=== PATIENT | male | born 1965 | race Caucasian/White ===

== ENCOUNTER 2020-10-16 13:45 | Inpatient (IN) | payer OTHER ==
[2020-10-16 15:19] LABS: BASO % 0.7 % (0-2.0); EOS % 0.3 % (0-4.5); HEMATOCRIT 47.8 % (35.4-49); HEMOGLOBIN 15.7 GM/dL (11.7-16.9); LYMPH % 10.3 % (8-40); MCH 29.5 pg (25.7-33.7); MCHC 32.9 g/dl (32.0-35.9); MEAN CELL VOLUME 89.7 fl (80-96); MEAN PLT VOLUME 8.8 fl (7.5-11.1); MONO % 8.9 % (3.8-10.2); NEUT % 79.8 % (42.8-82.8); PLATELET COUNT 272 10^3/uL (134-434); RBC 5.33 M/mm3 (4.00-5.60); RDW 14.2 % (11.9-15.9); WHITE BLOOD COUNT 11.5 K/mm3 (4.0-10.0)
[2020-10-16 15:21] LABS: URINE APPEARANCE Clear; URINE BILIRUBIN 1+ (NEGATIVE); URINE COLOR Yellow; URINE GLUCOSE (UA) Negative (NEGATIVE); URINE KETONE 1+ (NEGATIVE); URINE LEUK ESTERASE Negative (NEGATIVE); URINE NITRITE Negative (NEGATIVE); URINE PROTEIN 1+ (NEGATIVE); URINE UROBILINOGEN 0.2 mg/dL (0.2-1.0)
[2020-10-16 15:29] LABS: OPIATES, URI NEGATIVE (NEGATIVE); PHENCYCLIDINE,URINE NEGATIVE (NEGATIVE); URINE BARBITURATES NEGATIVE (NEGATIVE)
[2020-10-16 15:30] LABS: METHADONE, UR NEGATIVE (NEGATIVE)
[2020-10-16 15:36] LABS: COCAINE, UR NEGATIVE (NEGATIVE); URINE AMPHETAMINES NEGATIVE (NEGATIVE); URINE BENZODIAZEPINES NEGATIVE (NEGATIVE)
[2020-10-16 15:39] LABS: CHLORIDE 107 mmol/L (98-107); SODIUM 141 mmol/L (136-145)
[2020-10-16 15:41] LABS: ALBUMIN 4.6 g/dl (3.4-5.0); CALCIUM 9.7 mg/dL (8.5-10.1)
[2020-10-16 15:42] LABS: ANION GAP 8 MMOL/L (8-16); BLOOD UREA NITROGEN 25.6 mg/dL (7-18); CO2 25 mmol/L (21-32); GLUCOSE,RANDOM 91 mg/dL (74-106); MAGNESIUM 2.5 mg/dL (1.8-2.4)
[2020-10-16 15:45] LABS: CREATININE 0.9 mg/dL (0.55-1.3); SGOT/AST 14 U/L (15-37); SGPT/ALT 23 U/L (13-61)
[2020-10-16 15:46] LABS: TOT PROT 7.6 g/dl (6.4-8.2)
[2020-10-16 15:47] LABS: ALK PHOS 69 U/L (45-117)
[2020-10-16 15:48] LABS: N-TERMINAL BNP 623.5 pg/ml (5-125)
[2020-10-17 00:55] LABS: HEMATOCRIT 44.3 % (35.4-49); MCH 29.9 pg (25.7-33.7); MCHC 33.7 g/dl (32.0-35.9); MEAN CELL VOLUME 88.7 fl (80-96); MEAN PLT VOLUME 8.5 fl (7.5-11.1); PLATELET COUNT 233 10^3/uL (134-434); RDW 14.2 % (11.9-15.9); WHITE BLOOD COUNT 11.8 K/mm3 (4.0-10.0)
[2020-10-17 01:03] VITALS: BMI 30.7
[2020-10-17 07:42] LABS: BASO % 0.9 % (0-2.0); EOS % 1.6 % (0-4.5); HEMATOCRIT 45.7 % (35.4-49); HEMOGLOBIN 15.2 GM/dL (11.7-16.9); LYMPH % 14.2 % (8-40); MCHC 33.2 g/dl (32.0-35.9); MEAN CELL VOLUME 90.3 fl (80-96); MEAN PLT VOLUME 8.7 fl (7.5-11.1); MONO % 9.6 % (3.8-10.2); NEUT % 73.7 % (42.8-82.8); PLATELET COUNT 241 10^3/uL (134-434); RBC 5.06 M/mm3 (4.00-5.60); RDW 14.3 % (11.9-15.9); WHITE BLOOD COUNT 9.4 K/mm3 (4.0-10.0)
[2020-10-17 07:59] LABS: BLOOD UREA NITROGEN 25.1 mg/dL (7-18); CALCIUM 9.1 mg/dL (8.5-10.1)
[2020-10-17 08:00] LABS: ALBUMIN 3.8 g/dl (3.4-5.0); MAGNESIUM 2.4 mg/dL (1.8-2.4)
[2020-10-17 08:03] LABS: CREATININE 0.8 mg/dL (0.55-1.3)
[2020-10-17 08:04] LABS: PHOSPHOROUS 3.4 mg/dL (2.5-4.9)
[2020-10-17 08:05] LABS: BILIRUBIN,TOTAL 1.1 mg/dL (0.2-1); TOT PROT 6.7 g/dl (6.4-8.2)
[2020-10-17] MEDS: DOCUSATE SODIUM 100 MG CAPSULE (FP) PO SCH ×2 (10:11→21:00)
[2020-10-17] MEDS: ENOXAPARIN NA (PORCINE) 40 MG/0.4 ML DISP.SYRIN SQ SCH (10:13)
[2020-10-17] MEDS: ACETAMINOPHEN 325 MG TABLET (FP) PO PRN (10:27)
[2020-10-17] MEDS ORDERED: PT OWN MED DRAWER 7, Y5N ONE ×2 (10:40→16:55)
[2020-10-17] MEDS: DULoxetine HCL 30 MG CAPSULE.DR PO SCH (12:55)
[2020-10-17] MEDS: GABAPENTIN 400 MG CAPSULE PO PRN (16:56)
[2020-10-17 21:59] LABS: EPI CELLS 2 /uL (0-25.1); HYALINE CASTS 0 /uL (0-3.1); PH,URINE 5.5 (5.0-8.0); URINE APPEARANCE CLEAR; URINE BACTERIA 72 /uL (0-1359); URINE BILIRUBIN NEGATIVE (NEGATIVE); URINE COLOR YELLOW; URINE GLUCOSE (UA) NEGATIVE (NEGATIVE); URINE KETONE NEGATIVE (NEGATIVE); URINE LEUK ESTERASE NEGATIVE (NEGATIVE); URINE NITRITE NEGATIVE (NEGATIVE); URINE PROTEIN NEGATIVE (NEGATIVE); URINE RBC 161 /uL (0-23.9); URINE WBC 9 /uL (0-25.8)
[2020-10-18] MEDS: ACETAMINOPHEN 325 MG TABLET (FP) PO PRN (09:45)
[2020-10-18] MEDS: DOCUSATE SODIUM 100 MG CAPSULE (FP) PO SCH ×2 (09:51→21:17)
[2020-10-18] MEDS: DULoxetine HCL 30 MG CAPSULE.DR PO SCH (09:51)
[2020-10-18] MEDS: ENOXAPARIN NA (PORCINE) 40 MG/0.4 ML DISP.SYRIN SQ SCH (09:53)
[2020-10-18] MEDS ORDERED: CYANOCOBALAMIN (VITAMIN B-12) 1000 MCG/1 ML VIAL IM SCH (10:00)
[2020-10-18 11:00] LABS: BASO % 0.8 % (0-2.0); EOS % 1.2 % (0-4.5); HEMATOCRIT 43.4 % (35.4-49); HEMOGLOBIN 15.1 GM/dL (11.7-16.9); LYMPH % 12.7 % (8-40); MCH 30.7 pg (25.7-33.7); MCHC 34.9 g/dl (32.0-35.9); MEAN CELL VOLUME 87.8 fl (80-96); MEAN PLT VOLUME 8.5 fl (7.5-11.1); MONO % 8.5 % (3.8-10.2); NEUT % 76.8 % (42.8-82.8); PLATELET COUNT 237 10^3/uL (134-434); RBC 4.94 M/mm3 (4.00-5.60)
[2020-10-18 11:16] LABS: ALBUMIN 3.6 g/dl (3.4-5.0); BLOOD UREA NITROGEN 23.4 mg/dL (7-18); CALCIUM 9.2 mg/dL (8.5-10.1)
[2020-10-18 11:17] LABS: MAGNESIUM 2.2 mg/dL (1.8-2.4)
[2020-10-18 11:19] LABS: CREATININE 0.8 mg/dL (0.55-1.3); PHOSPHOROUS 3.5 mg/dL (2.5-4.9)
[2020-10-18 11:21] LABS: BILIRUBIN,TOTAL 0.7 mg/dL (0.2-1); TOT PROT 6.4 g/dl (6.4-8.2)
[2020-10-18] MEDS ORDERED: MELATONIN 5 MG TABLETS PO ONE (22:41)
[2020-10-19] MEDS ORDERED: PT OWN MED DRAWER 7, Y5N ONE ×2 (05:56→09:45)
[2020-10-19] MEDS: GABAPENTIN 400 MG CAPSULE PO PRN ×2 (05:57→15:46)
[2020-10-19] MEDS: ACETAMINOPHEN 325 MG TABLET (FP) PO PRN (05:57)
[2020-10-19 07:53] LABS: BASO % 0.8 % (0-2.0); HEMATOCRIT 47.4 % (35.4-49); HEMOGLOBIN 15.9 GM/dL (11.7-16.9); LYMPH % 14.5 % (8-40); MCHC 33.4 g/dl (32.0-35.9); MEAN CELL VOLUME 89.8 fl (80-96); MEAN PLT VOLUME 9.1 fl (7.5-11.1); MONO % 8.6 % (3.8-10.2); NEUT % 74.1 % (42.8-82.8); PLATELET COUNT 274 10^3/uL (134-434); RBC 5.28 M/mm3 (4.00-5.60); RDW 13.9 % (11.9-15.9); WHITE BLOOD COUNT 9.3 K/mm3 (4.0-10.0)
[2020-10-19 08:13] LABS: CALCIUM 9.4 mg/dL (8.5-10.1)
[2020-10-19 08:14] LABS: ALBUMIN 3.9 g/dl (3.4-5.0); BLOOD UREA NITROGEN 22.5 mg/dL (7-18); MAGNESIUM 2.4 mg/dL (1.8-2.4)
[2020-10-19 08:17] LABS: CREATININE 0.9 mg/dL (0.55-1.3); PHOSPHOROUS 3.8 mg/dL (2.5-4.9)
[2020-10-19 08:19] LABS: BILIRUBIN,TOTAL 0.9 mg/dL (0.2-1); TOT PROT 6.8 g/dl (6.4-8.2)
[2020-10-19] MEDS: ENOXAPARIN NA (PORCINE) 40 MG/0.4 ML DISP.SYRIN SQ SCH (10:03)
[2020-10-19] MEDS: DULoxetine HCL 30 MG CAPSULE.DR PO SCH (10:04)
[2020-10-19] MEDS: DOCUSATE SODIUM 100 MG CAPSULE (FP) PO SCH ×2 (10:05→21:53)
[2020-10-19] MEDS ORDERED: MELATONIN 5 MG TABLETS PO ONE (21:57)
[2020-10-20] MEDS ORDERED: PT OWN MED DRAWER 7, Y5N ONE ×3 (06:26→14:07)
[2020-10-20] MEDS: GABAPENTIN 400 MG CAPSULE PO PRN (06:27)
[2020-10-20 07:56] LABS: BASO % 0.7 % (0-2.0); EOS % 1.8 % (0-4.5); HEMOGLOBIN 15.6 GM/dL (11.7-16.9); LYMPH % 14.7 % (8-40); MCH 30.5 pg (25.7-33.7); MCHC 34.8 g/dl (32.0-35.9); MEAN CELL VOLUME 87.8 fl (80-96); MEAN PLT VOLUME 8.7 fl (7.5-11.1); MONO % 8.6 % (3.8-10.2); NEUT % 74.2 % (42.8-82.8); PLATELET COUNT 249 10^3/uL (134-434); RBC 5.12 M/mm3 (4.00-5.60); RDW 13.9 % (11.9-15.9); WHITE BLOOD COUNT 8.4 K/mm3 (4.0-10.0)
[2020-10-20 08:13] LABS: ALBUMIN 3.8 g/dl (3.4-5.0); CALCIUM 9.3 mg/dL (8.5-10.1)
[2020-10-20 08:14] LABS: BLOOD UREA NITROGEN 17.6 mg/dL (7-18); MAGNESIUM 2.5 mg/dL (1.8-2.4)
[2020-10-20 08:17] LABS: CREATININE 0.8 mg/dL (0.55-1.3); PHOSPHOROUS 3.5 mg/dL (2.5-4.9)
[2020-10-20 08:18] LABS: BILIRUBIN,TOTAL 0.8 mg/dL (0.2-1); TOT PROT 6.8 g/dl (6.4-8.2)
[2020-10-20 09:30] VITALS: BP 126/54; PULSE 87; TEMP 97.5
[2020-10-20] MEDS: DOCUSATE SODIUM 100 MG CAPSULE (FP) PO SCH (10:09)
[2020-10-20] MEDS: ACETAMINOPHEN 325 MG TABLET (FP) PO PRN (10:10)
[2020-10-20] MEDS: ENOXAPARIN NA (PORCINE) 40 MG/0.4 ML DISP.SYRIN SQ SCH (10:10)
[2020-10-20] MEDS: DULoxetine HCL 30 MG CAPSULE.DR PO SCH (10:14)
== END 2020-10-20 15:03 | disposition home or self-care (01) | DRG 884 ==
LOC: JER 13:45 → JERBED 18:59 → J5S 23:47
PROVIDERS: ADMIT Internal Medicine; ATTEND Internal Medicine
DX: F09 Unspecified mental disorder due to known physiological condition (principal); G93.41 Metabolic encephalopathy; F17.210 Nicotine dependence, cigarettes, uncomplicated; E66.9 Obesity, unspecified; Z68.30 Body mass index [BMI] 30.0-30.9, adult
CPT/HCPCS: 36415; 70450-TC; 71046-TC-FY; 76775-TC; 80053; 80307; 81003; 82136; 82550; 82607; 82746; 82962; 83735; 83880; 83918; 84100; 84436; 84439; 84443; 84484; 85025; 85027; 86780; 87086; 93005; 93010; 97116-GP; 97162-GP; 99285-25; C9803; U0003; U0005